=== PATIENT | female | born 1985 | race African-American/Black ===

== ENCOUNTER 2017-11-11 09:14 | Emergency (ER) | payer BC, MEDICAID, OTHER ==
[~2017-11-11] VITALS: Ht 182.9 cm; Wt 259.0 kg
[2017-11-11 09:14] VITALS: BP 132/82
[~2017-11-11 09:14] MED LIST: FLUO20CA36 PO; FLUO40CA8 PO
== END 2017-11-11 10:16 | disposition home or self-care (01) ==
LOC: ER 09:16
DX: J02.9 Acute pharyngitis, unspecified (principal); E66.9 Obesity, unspecified; F32.9 Major depressive disorder, single episode, unspecified; F43.10 Post-traumatic stress disorder, unspecified; F41.9 Anxiety disorder, unspecified
CPT/HCPCS: A4606; Z7502; Z7610